=== PATIENT | female | born 1955 | race Native Hawaiian/Other Pacific Islander ===

== ENCOUNTER → 2025-01-06 | Outpatient (CLI) | payer OTHER, SELFPAY ==
[2025-01-06 10:21] LABS: Basophils % (Auto) 1 % (0-2.5); Eosinophils # (Auto) 0.1 Thou/mm3 (0.0-0.5); Eosinophils % (Auto) 3 % (0-10); Hematocrit 36.3 % (36.0-46.0); Hemoglobin 11.8 g/dL (12.0-16.0); Immature Granulocytes % (Auto) 0 % (0-0); Immature Granulocytes Auto 0.01 Thou/mm3 (0.00-0.00); Lymphocytes # (Auto) 1.3 Thou/mm3 (1.0-4.8); Lymphocytes % (Auto) 27 % (10-50); Mean Corpuscular HGB Conc 32.5 g/dl (31.0-37.0); Mean Corpuscular Hemoglobin 32.3 pg (25.0-35.0); Mean Corpuscular Volume 100 fL (80-100); Monocytes # (Auto) 0.4 Thou/mm3 (0.0-0.8); Monocytes % (Auto) 8 % (0-12); Neutrophils % (Auto) 62 % (37-80); Nucleated Red Blood Cell % 0 /100 WBC (0); Platelet Count 216 Thou/mm3 (140-440); RDW Standard Deviation 42.8 fL (36.4-46.3); Red Blood Count 3.65 Miln/mm3 (4.00-5.20); White Blood Count 4.8 Thou/mm3 (3.6-11.0)
[2025-01-06 10:27] LABS: Glucose Estimated Average 105 mg/dL (80-131); Hemoglobin A1C 5.3 % Hgb (4.8-6.0)
[2025-01-06 10:31] LABS: Alanine Aminotransferase 14 U/L (10-49); Albumin, Serum 4.5 gm/dL (3.4-4.8); Albumin/Globulin Ratio 1.7 (1.2-2.2); Alkaline Phosphatase 50 U/L (46-116); Anion Gap 5 (7-16); Aspartate Amino Transferase 25 U/L (0-34); BUN/Creatinine Ratio 27 Ratio (12-20); Bilirubin,Total 0.7 mg/dL (0.3-1.2); Blood Urea Nitrogen 19 mg/dL (9-23); Calcium 9.8 mg/dL (8.3-10.6); Calcium (Corrected) 9.8 mg/dL (8.5-10.1); Carbon Dioxide 30.9 mMol/L (20.0-31.0); Cardiac Risk Estimate 1.8 RATIO (3.7-5.6); Chloride 106 mMol/L (98-107); Cholesterol 162 mg/dL (132-200); Creatinine (Component) 0.7 mg/dL (0.6-1.3); Free T4 (Free Thyroxine) 1.11 ng/dL (0.89-1.76); Globulin 2.6 gm/dL (2.3-3.5); Glucose 96 mg/dL (74-106); HDL Cholesterol 91 mg/dL (40-60); LDL Cholesterol,Calculated 49 mg/dL (0-130); Osmolality,Calculated 285 (275-295); Potassium 4.3 mMol/L (3.4-5.1); Sodium 142 mMol/L (136-145); Thyroid Stimulating Hormone 1.26 uIU/mL (0.55-4.78); Total Protein 7.1 gm/dL (5.7-8.2); Triglycerides 109 mg/dL (30-150); eGFR > 60 See Note
[2025-01-06 10:35] LABS: Vitamin B12 1660 pg/mL (211-911); Vitamin D 25 Hydroxy Total 22.8 ng/mL (7.3-40.2)
== END | disposition home or self-care (01) ==
LOC: COPL 09:22
PROVIDERS: PCP Internal Medicine; Referring Provider Internal Medicine; Visit Provider Internal Medicine
DX: Z00.00 Encounter for general adult medical examination without abnormal findings (principal)
CPT/HCPCS: 36415; 80053; 80061; 82306; 82607; 83036; 84439; 84443; 85025

== ENCOUNTER → 2025-02-27 | Outpatient (CLI) | payer OTHER, SELFPAY ==
--- NOTE | 2025-02-27 09:00 | XR_ITS ---
Examination: Screening digital mammography, bilateral Computer aided detection 3-D breast Tomosynthesis, bilateral Date and time of exam: February 27, 2025 0859 hours Compared to mammograms dating to May 15, 2016 Indication: Screening Technique: Nonmagnified MLO, CC views of the breasts to been obtained, reconstructed from 3-D Tomosynthesis images. R2 computer aided detection program utilized for evaluation of suspicious masses and/or abnormal calcifications. 3-D Tomosynthesis images obtained. Findings: Scattered areas of fibroglandular density Benign calcifications. No interval suspicious masses Impression: BI-RADS category II: Benign Findings. Recommend 1 year follow-up mammogram.
== END | disposition home or self-care (01) ==
LOC: CDIM 08:53
PROVIDERS: Referring Provider Internal Medicine; Visit Provider Internal Medicine
DX: Z12.31 Encounter for screening mammogram for malignant neoplasm of breast (principal); R92.323 Mammographic fibroglandular density, bilateral breasts; R92.1 Mammographic calcification found on diagnostic imaging of breast
CPT/HCPCS: 77063; 77067

== ENCOUNTER → 2025-06-29 | Outpatient (CLI) | payer OTHER, SELFPAY ==
[2025-06-29 11:47] LABS: Cardiac Risk Estimate 2.8 RATIO (3.7-5.6); Cholesterol 237 mg/dL (132-200); HDL Cholesterol 86 mg/dL (40-60); LDL Cholesterol,Calculated 134 mg/dL (0-130); Triglycerides 87 mg/dL (30-150)
[2025-06-29 12:04] LABS: Glucose Estimated Average 97 mg/dL (80-131); Hemoglobin A1C 5.0 % Hgb (4.8-6.0)
== END | disposition home or self-care (01) ==
LOC: COPL 09:59
PROVIDERS: PCP Internal Medicine; Referring Provider Internal Medicine; Visit Provider Internal Medicine
DX: E11.9 Type 2 diabetes mellitus without complications (principal); E78.2 Mixed hyperlipidemia
CPT/HCPCS: 36415; 80061; 83036